=== PATIENT | female | born 1980 | race Two or more races ===

== ENCOUNTER 2017-06-19 16:05 | Observation (INO) | payer MEDICAID | END 2017-06-19 17:15 | disposition home or self-care (01) | DRG 566 | LOC: LDRP 16:05 | PROVIDERS: ADMIT Obstetrics & Gynecology; ATTEND Obstetrics & Gynecology | DX: O26.892 Other specified pregnancy related conditions, second trimester (principal); O24.410 Gestational diabetes mellitus in pregnancy, diet controlled; R10.2 Pelvic and perineal pain; Z3A.27 27 weeks gestation of pregnancy | CPT/HCPCS: 59025; 81002; G0378 ==

== ENCOUNTER 2017-07-13 14:13 | Observation (INO) | payer MEDICAID ==
[~2017-07-13] VITALS: Ht 158.8 cm; Wt 84.8 kg
[2017-07-13] MEDS ORDERED: PREN-96 PO (15:29)
== END 2017-07-13 16:05 | disposition home or self-care (01) | DRG 566 ==
LOC: LDRP 14:13
PROVIDERS: ADMIT Specialist; ATTEND Specialist
DX: O40.3XX0 Polyhydramnios, third trimester, not applicable or unspecified (principal); Z3A.30 30 weeks gestation of pregnancy
CPT/HCPCS: 59025; 76818; 81002; 82948; G0378

== ENCOUNTER 2017-07-20 14:11 | Observation (INO) | payer MEDICAID ==
[~2017-07-20 14:11] MED LIST: PREN-96 PO
[2017-07-20] MEDS ORDERED: LACTATED RINGER'S 1,000 ML IV ONE (16:21)
[2017-07-20] MEDS ORDERED: TERBUTALINE SULFATE 1 MG/ML 1ML VIAL SC SCH (16:30)
[2017-07-20 16:42] LABS: Urine RBC None Seen /hpf (0 - 4)
[2017-07-20 16:55] LABS: Urine Bilirubin Negative (Negative); Urine Blood Negative /uL (Negative); Urine Color Yellow (Yellow); Urine Glucose Normal (Normal); Urine Ketone 3+ (Negative); Urine Mucus FEW (None Seen); Urine Nitrite Negative (Negative); Urine Squamous Epithelial Cell FEW /hpf (<5); Urine Urobilinogen Normal (Negative); Urine pH 5.5 (5.0-8.0)
== END 2017-07-20 17:50 | disposition home or self-care (01) | DRG 566 ==
LOC: LDRP 14:11
PROVIDERS: ADMIT Obstetrics & Gynecology; ATTEND Obstetrics & Gynecology
DX: O24.419 Gestational diabetes mellitus in pregnancy, unspecified control (principal); O26.893 Other specified pregnancy related conditions, third trimester; R10.9 Unspecified abdominal pain; Z3A.30 30 weeks gestation of pregnancy
CPT/HCPCS: 59025; 76818; 80307; 81001; 81002; 82962; G0378; J3105

== ENCOUNTER 2017-07-26 18:52 | Observation (INO) | payer MEDICAID | END 2017-07-26 20:20 | disposition home or self-care (01) | DRG 566 | LOC: LDRP 18:52 | PROVIDERS: ADMIT Obstetrics & Gynecology; ATTEND Obstetrics & Gynecology | DX: O24.419 Gestational diabetes mellitus in pregnancy, unspecified control (principal); O62.9 Abnormality of forces of labor, unspecified; Z3A.32 32 weeks gestation of pregnancy | CPT/HCPCS: 59025; 76818; 81002; 82948; 82962; G0378 ==

== ENCOUNTER 2017-08-03 17:50 | Observation (INO) | payer MEDICAID ==
[2017-08-03] MEDS ORDERED: NIFEdipine 10 MG CAP ONE (18:10)
[2017-08-03] MEDS ORDERED: NIF10C PO (18:21)
[2017-08-03] MEDS ORDERED: PROG1POW XX (18:22)
== END 2017-08-03 20:10 | disposition home or self-care (01) | DRG 566 ==
LOC: LDRP 17:50
PROVIDERS: ADMIT Specialist; ATTEND Specialist
DX: O62.9 Abnormality of forces of labor, unspecified (principal); O09.523 Supervision of elderly multigravida, third trimester; Z3A.33 33 weeks gestation of pregnancy
CPT/HCPCS: 59025; 76818; 81002; G0378

== ENCOUNTER 2017-08-10 11:01 | Observation (INO) | payer MEDICAID ==
[~2017-08-10 11:01] MED LIST changes: +NIF10C PO; +PROG1POW XX
== END 2017-08-10 16:10 | disposition home or self-care (01) | DRG 566 ==
LOC: LDRP 11:01
PROVIDERS: ADMIT Obstetrics & Gynecology; ATTEND Obstetrics & Gynecology
DX: O24.419 Gestational diabetes mellitus in pregnancy, unspecified control (principal); Z3A.34 34 weeks gestation of pregnancy
CPT/HCPCS: 59025; 76818; 81002; 82962; G0378

== ENCOUNTER 2017-08-15 16:00 | Observation (INO) | payer MEDICAID | END 2017-08-15 17:30 | disposition home or self-care (01) | DRG 566 | LOC: LDRP 16:00 | PROVIDERS: ADMIT Obstetrics & Gynecology; ATTEND Obstetrics & Gynecology | DX: O26.893 Other specified pregnancy related conditions, third trimester (principal); O24.419 Gestational diabetes mellitus in pregnancy, unspecified control; R10.30 Lower abdominal pain, unspecified; Z3A.35 35 weeks gestation of pregnancy | CPT/HCPCS: 59025; 81002; G0378 ==

== ENCOUNTER 2017-08-19 15:03 | Observation (INO) | payer MEDICAID | END 2017-08-19 18:45 | disposition home or self-care (01) | DRG 566 | LOC: LDRP 15:03 | PROVIDERS: ADMIT Specialist; ATTEND Specialist | DX: O24.419 Gestational diabetes mellitus in pregnancy, unspecified control (principal); E03.9 Hypothyroidism, unspecified; O99.283 Endocrine, nutritional and metabolic diseases complicating pregnancy, third trimester; Z3A.36 36 weeks gestation of pregnancy | CPT/HCPCS: 59025; 76818; 81002; 82962; G0378 ==

== ENCOUNTER 2017-08-24 14:38 | Observation (INO) | payer MEDICAID | END 2017-08-24 17:17 | disposition home or self-care (01) | DRG 566 | LOC: LDRP 14:38 | PROVIDERS: ADMIT Obstetrics & Gynecology; ATTEND Obstetrics & Gynecology | DX: O24.419 Gestational diabetes mellitus in pregnancy, unspecified control (principal); Z3A.36 36 weeks gestation of pregnancy | CPT/HCPCS: 59025; 76818; 81002; 82962; G0378 ==

== ENCOUNTER 2017-08-25 17:15 | Observation (INO) | payer MEDICAID ==
[~2017-08-25] VITALS: Ht 1 cm; Wt 0.5 kg
[2017-08-25] MEDS ORDERED: NIFEdipine 10 MG CAP ONE (19:01)
[2017-08-25] MEDS ORDERED: NIFEdipine 10 MG CAP PO SCH (22:00)
== END 2017-08-25 22:05 | disposition home or self-care (01) | DRG 566 ==
LOC: LDRP 17:15
PROVIDERS: ADMIT Obstetrics & Gynecology; ATTEND Obstetrics & Gynecology
DX: O36.8130 Decreased fetal movements, third trimester, not applicable or unspecified (principal); O26.893 Other specified pregnancy related conditions, third trimester; O24.419 Gestational diabetes mellitus in pregnancy, unspecified control; R10.13 Epigastric pain; Z3A.37 37 weeks gestation of pregnancy
CPT/HCPCS: 59025; 76818; 81002; 82962; G0378

== ENCOUNTER 2017-08-26 08:30 | Observation (INO) | payer MEDICAID ==
[2017-08-26] MEDS ORDERED: TERBUTALINE SULFATE 1 MG/ML 1ML VIAL SC ONE (10:20)
[2017-08-26] MEDS ORDERED: TERBUTALINE SULFATE 1 MG/ML 1ML VIAL SC SCH (10:30)
[2017-08-27] MEDS ORDERED: LEVO75TA50 PO (16:31)
== END 2017-08-26 11:25 | disposition home or self-care (01) | DRG 566 ==
LOC: LDRP 08:30
PROVIDERS: ADMIT Obstetrics & Gynecology; ATTEND Obstetrics & Gynecology
DX: O24.419 Gestational diabetes mellitus in pregnancy, unspecified control (principal); O36.8130 Decreased fetal movements, third trimester, not applicable or unspecified; Z3A.37 37 weeks gestation of pregnancy
CPT/HCPCS: 59025; 76818; 81002; 96372; G0378; J3105

== ENCOUNTER 2017-08-27 13:50 | Observation (INO) | payer MEDICAID ==
[2017-08-27] MEDS ORDERED: TERBUTALINE SULFATE 1 MG/ML 1ML VIAL SC ONE (16:30)
[2017-08-27] MEDS ORDERED: LEVO75TA50 PO (16:31)
== END 2017-08-27 17:50 | disposition home or self-care (01) | DRG 566 ==
LOC: LDRP 13:50
PROVIDERS: ADMIT Obstetrics & Gynecology; ATTEND Obstetrics & Gynecology
DX: O36.8130 Decreased fetal movements, third trimester, not applicable or unspecified (principal); O24.419 Gestational diabetes mellitus in pregnancy, unspecified control; Z3A.37 37 weeks gestation of pregnancy
CPT/HCPCS: 59025; 76818; 81002; 96372; G0378; J3105

== ENCOUNTER 2017-08-29 10:35 | Observation (INO) | payer MEDICAID ==
[~2017-08-29 10:35] MED LIST changes: +LEVO75TA50 PO; -PROG1POW XX
== END 2017-08-29 14:25 | disposition home or self-care (01) | DRG 566 ==
LOC: LDRP 10:35
PROVIDERS: ADMIT Specialist; ATTEND Specialist
DX: O24.419 Gestational diabetes mellitus in pregnancy, unspecified control (principal); O40.3XX0 Polyhydramnios, third trimester, not applicable or unspecified; O62.9 Abnormality of forces of labor, unspecified; Z3A.37 37 weeks gestation of pregnancy
CPT/HCPCS: 59025; 76818; 81002; 82962; G0378

== ENCOUNTER 2017-08-30 21:09 | Observation (INO) | payer OTHER, MEDICAID ==
[2017-08-30] MEDS ORDERED: TERBUTALINE SULFATE 1 MG/ML 1ML VIAL SC ONE (22:03)
[2017-08-30] MEDS ORDERED: LACTATED RINGER'S 1,000 ML IV ONE (22:04)
[2017-08-30] MEDS ORDERED: TERBUTALINE SULFATE 1 MG/ML 1ML VIAL SC SCH ×2 (22:15→22:38)
[2017-08-30 22:33] LABS: Urine RBC None Seen /hpf (0 - 4)
[2017-08-30 22:51] LABS: Urine Bilirubin Negative (Negative); Urine Blood Negative /uL (Negative); Urine Color Yellow (Yellow); Urine Glucose Normal (Normal); Urine Ketone Negative (Negative); Urine Nitrite Negative (Negative); Urine Squamous Epithelial Cell FEW /hpf (<5); Urine Urobilinogen Normal (Negative); Urine pH 5.5 (5.0-8.0)
== END 2017-08-30 23:10 | disposition home or self-care (01) | DRG 782 ==
LOC: LDRP 21:09
PROVIDERS: ADMIT Specialist; ATTEND Specialist
DX: O62.9 Abnormality of forces of labor, unspecified (principal); Z3A.37 37 weeks gestation of pregnancy
CPT/HCPCS: 59025; 80307; 81001; 81002; 82948; 82962; 96360; 96372; G0378; J3105; 96361; 96366

== ENCOUNTER 2017-08-31 08:55 | Inpatient (IN) | payer OTHER, MEDICAID ==
[~2017-08-31] VITALS: Ht 157.5 cm; Wt 86.6 kg
[2017-08-31] MEDS ORDERED: LACTATED RINGER'S 1,000 ML IV SCH (09:41)
[2017-08-31] MEDS ORDERED: fentaNYL CITRATE 100 MCG/2 ML VL ONE (10:31)
[2017-08-31] MEDS ORDERED: MORPHINE SULF(PF) 0.5MG/ML 10ML VIAL ONE (10:31)
[2017-08-31] MEDS ORDERED: ONDANSETRON HCL 4 MG/2 ML VIAL ONE (10:32)
[2017-08-31] MEDS ORDERED: ceFAZolin 1GM VL ONE (10:32)
[2017-08-31] MEDS ORDERED: MIDAZOLAM HCL 1MG/1ML-2 ML VIAL ONE (10:32)
[2017-08-31] MEDS ORDERED: OXYTOCIN 10 UNIT/ML 10ML VIAL ONE (10:32)
[2017-08-31] MEDS ORDERED: SODIUM CHLORIDE LOCK 10 ML ONE (10:32)
[2017-08-31] MEDS ORDERED: TETRACAINE 1% INJ 2 ML VIAL IJ ONE (10:40)
[2017-08-31 10:53] LABS: Basophils # (auto) 0 uL; Eosinophils # (auto) 0 uL; Eosinophils % (auto) 0.4 % (0.0-7.0); Hemoglobin 10.6 g/dL (12.2-16.2); Mean Corpuscular Hgb Conc. 32.4 g/dL (32.0-36.0); Monocytes # (auto) 0.4 uL; Monocytes % (auto) 4.7 % (0.0-12.0); White Blood Cell 8.7 10^3/uL (4.4-10.8)
[2017-08-31 10:56] LABS: Basophils % (auto) 0.4 % (0.0-2.0); Hematocrit 32.6 % (36.0-46.0); Lymphocytes # (auto) 1.9 uL; Lymphocytes % (auto) 21.9 % (10.0-50.0); Mean Corpuscular Hemoglobin 25.4 pg (28.0-32.0); Mean Corpuscular Volume 78.3 fL (80.0-100.0); Mean Platelet Volume 9.3 fL (6.9-10.8); Neutrophils # (auto) 6.3 uL; Neutrophils % (auto) 72.6 % (37.0-80.0); Nucleated Red Blood Cells % 0.1 %; Platelet Count (auto) 249 10^3/uL (140-450)
[2017-08-31 11:04] LABS: INR 0.86 (0.9-1.15); Partial Thromboplastin Time 25.9 sec (22.64-33.71); Prothrombin Time 9.4 sec (9.37-12.3)
[2017-08-31 11:08] LABS: Urine Bilirubin Negative (Negative); Urine Blood 1+ /uL (Negative); Urine Color Yellow (Yellow); Urine Glucose Normal (Normal); Urine Ketone 1+ (Negative); Urine Mucus FEW (None Seen); Urine Nitrite Negative (Negative); Urine RBC 8 /hpf (0 - 4); Urine Squamous Epithelial Cell FEW /hpf (<5); Urine Urobilinogen Normal (Negative)
[2017-08-31 11:10] LABS: Albumin 2.5 g/dL (3.4-5.0); BUN/Creatinine Ratio 15.4; Bilirubin, Total 0.6 mg/dL (0.2-1.0); Calcium 8.4 mg/dL (8.5-10.1); Potassium 3.8 mmol/L (3.5-5.1)
[2017-08-31] MEDS ORDERED: KETAMINE HCL 1 ML ONE (11:55)
[2017-08-31] MEDS ORDERED: OXYTOCIN 10UNIT/ML 1ML VIAL ONE (13:26)
[2017-08-31] MEDS ORDERED: METOCLOPRAMIDE HCL 5MG/ml INJ 2ml VIAL IV ONE (13:30)
[2017-08-31] MEDS ORDERED: HYDROmorphone HCL 2 MG/ML VL IV PRN (13:30)
[2017-08-31] MEDS ORDERED: KETOROLAC TROMETH 30 MG/ML 1ML VIAL IV ONE (13:30)
[2017-08-31] MEDS ORDERED: ACCU-CHEK COMFORT CURVE STRIP VI ONE (13:30)
[2017-08-31] MEDS ORDERED: ONDANSETRON HCL 4 MG/2 ML VIAL IV PRN (15:15)
[2017-08-31] MEDS ORDERED: ceFAZolin 1GM/50ML 50 ML IV SCH (15:15)
[2017-08-31 15:25] VITALS: BP 127/84
[2017-08-31 16:00] VITALS: BP 127/84
[2017-08-31] MEDS: HYDROmorphone HCL 2 MG/ML VL IV PRN ×2 (16:00→20:30)
[2017-08-31] MEDS: KETOROLAC TROMETH 30 MG/ML 1ML VIAL IV SCH (17:39)
[2017-08-31] MEDS: LACTATED RINGER'S 1,000 ML IV SCH ×2 (18:54→23:08)
[2017-08-31 20:00] VITALS: BP 122/81
[2017-08-31] MEDS: ceFAZolin 1GM/50ML 50 ML IV SCH (22:30)
[2017-09-01] VITALS (7 sets, daily range): BP systolic 118–131; BP diastolic 62–88
[2017-09-01] MEDS: KETOROLAC TROMETH 30 MG/ML 1ML VIAL IV SCH ×2 (01:00→08:45)
[2017-09-01] MEDS: HYDROmorphone HCL 2 MG/ML VL IV PRN (03:30)
[2017-09-01] MEDS: ceFAZolin 1GM/50ML 50 ML IV SCH ×2 (05:30→13:50)
[2017-09-01] MEDS ORDERED: SODIUM CHLORIDE LOCK 10 ML ONE (06:27)
[2017-09-01] MEDS ORDERED: DEXTROSE 10% 250 ML IV ONE (06:27)
[2017-09-01] MEDS ORDERED: IBUPROFEN 800 MG TAB PO PRN (12:00)
[2017-09-01] MEDS ORDERED: HYDROcodone-ACET 5/325MG TAB PO PRN (12:00)
[2017-09-01] MEDS ORDERED: SIMETHICONE 80 MG CHEWABLE TABLET PO PRN (12:00)
[2017-09-01 15:34] LABS: Basophils # (auto) 0 uL; Eosinophils # (auto) 0 uL; Hemoglobin 7.4 g/dL (12.2-16.2); Lymphocytes # (auto) 1.6 uL; Mean Platelet Volume 8.5 fL (6.9-10.8)
[2017-09-01 15:35] LABS: Basophils % (auto) 0.2 % (0.0-2.0); Eosinophils % (auto) 0.2 % (0.0-7.0); Hematocrit 22.9 % (36.0-46.0); Lymphocytes % (auto) 14.7 % (10.0-50.0); Mean Corpuscular Hemoglobin 25.7 pg (28.0-32.0); Mean Corpuscular Hgb Conc. 32.5 g/dL (32.0-36.0); Mean Corpuscular Volume 78.9 fL (80.0-100.0); Monocytes # (auto) 0.6 uL; Monocytes % (auto) 5.7 % (0.0-12.0); Neutrophils # (auto) 8.6 uL; Neutrophils % (auto) 79.2 % (37.0-80.0); Platelet Count (auto) 226 10^3/uL (140-450); Red Cell Distribution Width 18.5 % (11.8-14.3); White Blood Cell 10.9 10^3/uL (4.4-10.8)
[2017-09-01] MEDS: HYDROcodone-ACET 5/325MG TAB PO PRN (19:11)
[2017-09-01] MEDS: DOCUSATE SOD 100 MG CAP PO SCH (23:13)
[2017-09-02] VITALS: BP 124/66
[2017-09-02 04:00] VITALS: BP 134/89
[2017-09-02] MEDS: HYDROcodone-ACET 5/325MG TAB PO PRN (04:04)
[2017-09-02 05:43] LABS: Basophils # (auto) 0 uL; Eosinophils # (auto) 0.1 uL; Eosinophils % (auto) 0.8 % (0.0-7.0); Hemoglobin 7.5 g/dL (12.2-16.2); Lymphocytes # (auto) 1.8 uL; Mean Platelet Volume 8.4 fL (6.9-10.8); Monocytes # (auto) 0.7 uL
[2017-09-02 05:44] LABS: Basophils % (auto) 0.2 % (0.0-2.0); Hematocrit 22.4 % (36.0-46.0); Lymphocytes % (auto) 18.2 % (10.0-50.0); Mean Corpuscular Hemoglobin 26.4 pg (28.0-32.0); Mean Corpuscular Hgb Conc. 33.7 g/dL (32.0-36.0); Mean Corpuscular Volume 78.3 fL (80.0-100.0); Monocytes % (auto) 6.7 % (0.0-12.0); Neutrophils # (auto) 7.4 uL; Neutrophils % (auto) 74.1 % (37.0-80.0); Platelet Count (auto) 226 10^3/uL (140-450); Red Cell Distribution Width 18.8 % (11.8-14.3); White Blood Cell 9.9 10^3/uL (4.4-10.8)
[2017-09-02] MEDS ORDERED: BISACODYL 10 MG RECT SUPP PR ONE ×2 (07:27→07:30)
[2017-09-02] MEDS ORDERED: INFLUENZA QUAD 2017-2018 0.5 ML SYRG IM ONE (07:30)
[2017-09-02] MEDS ORDERED: TETANUS-DIPTH-ACEL PERTUSSIS 0.5ML SYRG IM ONE (07:30)
[2017-09-02] MEDS ORDERED: MEASLES, MUMPS & RUBELLA VAC(MMRII) 0.5ML SC ONE (07:30)
[2017-09-02 07:32] VITALS: BP 128/60
[2017-09-02] MEDS: DOCUSATE SOD 100 MG CAP PO SCH (10:22)
== END 2017-09-02 11:35 | disposition home or self-care (01) | DRG 766 ==
LOC: LDRP 08:55 → OBSVTOIN 08:55 → LDRP 17:30
PROVIDERS: ADMIT Specialist; ATTEND Specialist
PROC: 10D00Z1 Extraction of Products of Conception, Low, Open Approach (ICD-10-PCS; 2017-08-31)
PROC: 0DNW0ZZ Release Peritoneum, Open Approach (ICD-10-PCS; 2017-08-31)
PROC: 0UL70CZ Occlusion of Bilateral Fallopian Tubes with Extraluminal Device, Open Approach (ICD-10-PCS; principal; 2017-08-31 11:26)
DX: O34.211 Maternal care for low transverse scar from previous cesarean delivery (principal); O24.420 Gestational diabetes mellitus in childbirth, diet controlled; D64.9 Anemia, unspecified; K66.0 Peritoneal adhesions (postprocedural) (postinfection); O42.02 Full-term premature rupture of membranes, onset of labor within 24 hours of rupture; Z37.0 Single live birth; O40.9XX0 Polyhydramnios, unspecified trimester, not applicable or unspecified; Z3A.37 37 weeks gestation of pregnancy; Z30.2 Encounter for sterilization; O90.81 Anemia of the puerperium; O09.523 Supervision of elderly multigravida, third trimester; Z23 Encounter for immunization
CPT/HCPCS: 36415; 51702; 59025; 76815; 80053; 80307; 81001; 81002; 82962; 85025; 85610; 85730; 86850; 86900; 86901; 90471; 90472; 90715; 94762; 96361; 96366; 96374; 96375; G0378; J0690; J1885; J2250; J2405; J2590